=== PATIENT | female | born 1985 | race Caucasian/White ===

== ENCOUNTER 2017-01-17 03:55 | Emergency (ER) | END 2017-01-17 06:55 | disposition home or self-care (01) | DX: K80.20 Calculus of gallbladder without cholecystitis without obstruction (principal); N23 Unspecified renal colic | CPT/HCPCS: 36415; 76775; 80053; 81001; 83690; 85025; 96374; 96375; 96376; J1885; J2270; J2405; J7030; Z7502 ==

== ENCOUNTER 2017-01-17 20:47 | Emergency (ER) | payer MEDICAID ==
[~2017-01-17] VITALS: Ht 160 cm; Wt 85.0 kg
[~2017-01-17 20:47] MED LIST: ALBU8.5H5 INH; AZIT500T3 PO; HYDR-906 PO; IBUP-1542 PO; NAPR-688 PO; ONDA4TAB11 PO
[2017-01-17 20:56] VITALS: Ht 160 cm; Wt 85.0 kg
[2017-01-17] MEDS ORDERED: KETOROLAC 30 MG INJ IM STA (22:04)
[2017-01-17] MEDS ORDERED: SOD CHLORIDE 0.9% 1,000 ML IV ONE (22:30)
[2017-01-17] MEDS ORDERED: KETOROLAC 30 MG INJ IV STA (22:35)
[2017-01-17 22:42] LABS: BASOPHILS % 0.2 % (0.0-2.0); EOSINOPHILS # 0.2 10^3/ul (0.0-0.5); EOSINOPHILS % 2.1 % (0.0-7.0); HEMATOCRIT 37.5 % (37.0-47.0); HEMOGLOBIN 12.1 g/dl (12.0-16.0); LYMPHOCYTES # 3.6 10^3/ul (0.8-2.9); LYMPHOCYTES % 37.9 % (15.0-51.0); MEAN CORPUSCULAR HEMOGLOBIN 29.8 pg (29.0-33.0); MEAN CORPUSCULAR HGB CONC 32.3 g/dl (32.0-37.0); MEAN CORPUSCULAR VOLUME 92.4 fl (82.0-101.0); MEAN PLATELET VOLUME 10.7 fl (7.4-10.4); MONOCYTE # 0.7 10^3/ul (0.3-0.9); MONOCYTES % 7.2 % (0.0-11.0); NEUTROPHILS % 52.3 % (39.0-77.0); PLATELET COUNT 273 10^3/UL (140-415); RED BLOOD COUNT 4.06 10^6/ul (4.20-5.40); RED CELL DISTRIBUTION WIDTH 11.9 % (11.5-14.5); WHITE BLOOD COUNT 9.5 10^3/ul (4.8-10.8)
[2017-01-17 22:57] LABS: ADD UMIC YES; UR ASCORBIC ACID NEGATIVE (NEGATIVE); UR BILIRUBIN (Dip) NEGATIVE (NEGATIVE); UR BLOOD (Dip) 1+ mg/dL (NEGATIVE); UR CLARITY SLIGHTLY CLOUDY (CLEAR); UR COLOR YELLOW (YELLOW); UR GLUCOSE (Dip) NEGATIVE (NEGATIVE); UR KETONES (Dip) NEGATIVE (NEGATIVE); UR LEUKOCYTE ESTERASE (Dip) TRACE Leu/ul (NEGATIVE); UR NITRITE (Dip) NEGATIVE (NEGATIVE); UR RBC 2 /HPF (0-5); UR SPECIFIC GRAVITY (Dip) 1.019 (1.003-1.030); UR SQUAMOUS EPITHELIAL CELL FEW /HPF (FEW); UR TOTAL PROTEIN (Dip) NEGATIVE (NEGATIVE); UR UROBILINOGEN (Dip) NEGATIVE (NEGATIVE)
[2017-01-17 23:08] LABS: ALBUMIN 4.1 g/dl (3.3-4.9); ALBUMIN/GLOBULIN RATIO 1.28; BILIRUBIN,INDIRECT 0.5 mg/dl (0-1.1); BILIRUBIN,TOTAL 0.5 mg/dl (0.2-1.3); CALCIUM 9.3 mg/dl (8.4-10.2); CREATININE 0.67 mg/dl (0.44-1.00); POTASSIUM 4.1 mmol/L (3.5-5.1); TOTAL PROTEIN 7.3 g/dl (6.1-8.1)
--- NOTE | 2017-01-17 23:52 | RADRPT ---
PROCEDURE: CT abdomen and pelvis without intravenous contrast. CLINICAL INDICATION: Pain. TECHNIQUE: CT of the abdomen/pelvis was performed utilizing axial images with reconstructions in s agittal and coronal planes. The administered radiation dose is CTDI 15.9 mGy, DLP 919 mGy-cm. COMPARISON: No pertinent prior examinations were submitted for comparison. FINDINGS: Visualized Chest: The visualized lung bases are clear. Abdomen: The liver, spleen, pancreas, and adrenal glands are unremarkable. A stone is noted within the gall bladder in the region of the gallbladder neck. The gallbladder is mildly distended. There is some likely minimal pericholecystic fluid or wall thickening. The kidneys are without hydronephrosis. There is a punctate nonobstructive calculus within the inter polar left kidney. There is no evidence of bowel obstruction. The appendix is normal. No intra-abdominal free air is seen. There is no evidence of intra-abdominal adenopathy or free fluid. Pelvis: There is no evidence of pelvic adenopathy. The uterus and ovaries are without enlargement. The uri nary bladder is unremarkable. There is no pelvic free fluid. Osseous structures: Unremarkable. IMPRESSION: Cholelithiasis with likely minimal pericholecystic fluid or gallbladder wall thickening. If there i s clinical concern for cholecystitis, right upper quadrant ultrasound may be helpful for further marium luation. Punctate nonobstructive left intrarenal calculus. RPTAT: HIKT .Guero Deluca MD, Date Time Electronically viewed and signed by .Guero Deluca MD, on 01/17/2017 23:51 .T/
[2017-01-18] MEDS ORDERED: morphine 4 MG/ML VIAL IV STA (00:19)
[2017-01-18] MEDS ORDERED: ONDANSETRON 4 MG INJ IV STA (00:19)
[2017-01-18] MEDS ORDERED: HYDR-906 PO (01:02)
[2017-01-18 01:31] VITALS: BP 108/78; PULSE 63; RESP 16; TEMP 97.8
--- NOTE | 2017-01-18 01:32 | ERA ---
ER Documentation Chief Complaint Date/Time DATE: 01/18/17 TIME: 01:25 Chief Complaint righ side flank pain,couldn't get prescription until Wednesday HPI 31-year-old female presenting with right upper quadrant discomfort. Patient was seen yesterday and diagnosed with cholelithiasis. Worse with food. Has not filled prescription for pain. Denies fever, vomiting, diarrhea, constipation, chest pain, shortness of breath. She has no other complaints and describes no other associated manifestations. ROS All systems reviewed and are negative except as per history of present illness. Medications Home Meds Active Scripts Hydrocodone/Acetaminophen (Reagan 5-325 Tablet) 1 Each Tablet, 1 TAB PO Q6H Y for PAIN, #7 TAB Prov:FALLON MCKINNON PA-C 01/18/17 Ondansetron (Zofran Odt) 4 Mg Tab.rapdis, 4 MG PO Q6, #10 Prov:ENEDELIA MENDOZA DO 01/17/17 Naproxen* (Naproxen*) 500 Mg Tablet, 500 MG PO BID Y for PAIN, #20 TAB Prov:ENEDELIA MENDOZA DO 01/17/17 Hydrocodone/Acetaminophen (Reagan 5-325 Tablet) 1 Each Tablet, 1 EACH PO Q6, #20 TAB Prov:ENEDELIA MENDOZA DO 01/17/17 Albuterol Sulfate* (Albuterol Sulfate* HFA) 8.5 Gm Hfa.aer.ad, 1-2 PUFF INH Q4 Y for COUGH, #1 EA Prov:ERICKA RITCHIE MD 06/09/15 Ibuprofen* (Ibuprofen*) 600 Mg Tablet, 600 MG PO Q8 for FEVER, #30 TAB Prov:ERICKA RITCHIE MD 06/09/15 Azithromycin* (Zithromax*) 500 Mg Tablet, 500 MG PO DAILY for 7 Days, TAB Prov:ERICKA RITCHIE MD 06/09/15 Allergies Allergies: Coded Allergies: No Known Allergy (Unverified , 06/09/15) PMhx/Soc History of Surgery: No Anesthesia Reaction: No Hx Neurological Disorder: No Hx Respiratory Disorders: No Hx Cardiac Disorders: No Hx Psychiatric Problems: No Hx Miscellaneous Medical Probl: No Hx Alcohol Use: No Hx Substance Use: No Hx Tobacco Use: No Smoking Status: Never smoker Physical Exam Vitals Vital Signs Date Time Temp Pulse Resp B/P Pulse Ox O2 Delivery O2 Flow Rate FiO2 01/17/17 20:56 99.0 69 18 127/74 99 Physical Exam Const: Overweight 31-year-old female in mild distress Head: Atraumatic Eyes: Normal Conjunctiva ENT: Normal External Ears, Nose and Mouth. Neck: Full range of motion..~ No meningismus. Resp: Clear to auscultation bilaterally Cardio: Regular rate and rhythm, no murmurs Abd: Mild right upper quadrant tenderness. Negative Lawton's sign. No McBurney's point tenderness. Soft, non distended. Normal bowel sounds Skin: No petechiae or rashes Back: No midline or flank tenderness Ext: No cyanosis, or edema Neur: Awake and alert Psych: Normal Mood and Affect Result Diagram: 01/17/17222901/17/172229 Results 24 hrs Laboratory Tests Test 01/17/17 22:25 01/17/17 22:30 Urine Color YELLOW Urine Clarity SLIGHTLY CLOUDY Urine pH 6.0 Urine Specific Delmar 1.019 Urine Ketones NEGATIVEmg/dL Urine Nitrite NEGATIVEmg/dL Urine Bilirubin NEGATIVEmg/dL Urine Urobilinogen NEGATIVEmg/dL Urine Leukocyte Esterase TRACELeu/ul Urine Microscopic RBC 2/HPF Urine Microscopic WBC 3/HPF Urine Squamous Epithelial Cells FEW/HPF Urine Hemoglobin 1+mg/dL Urine Glucose NEGATIVEmg/dL Urine Total Protein NEGATIVEmg/dl White Blood Count 9.510^3/ul Red Blood Count 4.0610^6/ul Hemoglobin 12.1g/dl Hematocrit 37.5% Mean Corpuscular Volume 92.4fl Mean Corpuscular Hemoglobin 29.8pg Mean Corpuscular Hemoglobin Concent 32.3g/dl Red Cell Distribution Width 11.9% Platelet Count 44597^3/UL Mean Platelet Volume 10.7fl Neutrophils % 52.3% Lymphocytes % 37.9% Monocytes % 7.2% Eosinophils % 2.1% Basophils % 0.2% Nucleated Red Blood Cells % 0.0/100WBC Neutrophils # 5.010^3/ul Lymphocytes # 3.610^3/ul Monocytes # 0.710^3/ul Eosinophils # 0.210^3/ul Basophils # 0.010^3/ul Nucleated Red Blood Cells # 0.010^3/ul Sodium Level 139mmol/L Potassium Level 4.1mmol/L Chloride Level 106mmol/L Carbon Dioxide Level 26mmol/L Anion Gap 11 Blood Urea Nitrogen 9mg/dl Creatinine 0.67mg/dl Glucose Level 90mg/dl Calcium Level 9.3mg/dl Total Bilirubin 0.5mg/dl Direct Bilirubin 0.00mg/dl Indirect Bilirubin 0.5mg/dl Aspartate Amino Transf (AST/SGOT) 28IU/L Alanine Aminotransferase (ALT/SGPT) 45IU/L Alkaline Phosphatase 95IU/L Total Protein 7.3g/dl Albumin 4.1g/dl Globulin 3.20g/dl Albumin/Globulin Ratio 1.28 Lipase 128U/L Serum HCG, Qualitative NEGATIVE Current Medications Medications (Trade) Dose Ordered Sig/Ralph Route PRN Reason Start Time Stop Time Status Last Admin Dose Admin Ketorolac Tromethamine 30 mg 30 mg ONCE STAT IM 01/17/17 22:04 01/17/17 22:36 DC Sodium Chloride (NS) 1,000 ml @ 1,000 mls/hr Q1H ONCE IV 01/17/17 22:30 01/17/17 23:29 DC 01/17/17 22:34 Ketorolac Tromethamine (Toradol) 30 mg ONCE STAT IV 01/17/17 22:35 01/17/17 22:36 DC 01/17/17 22:49 Morphine Sulfate (morphine) 4 mg ONCE STAT IV 01/18/17 00:19 01/18/17 00:21 DC 01/18/17 00:23 Ondansetron HCl (Zofran Inj) 4 mg ONCE STAT IV 01/18/17 00:19 01/18/17 00:21 DC 01/18/17 00:23 Procedures/MDM 31-year-old female presenting with signs and symptoms most consistent with cholelithiasis. Ultrasound was taken yesterday, read by the radiologist given the following impression: 2. Cholelithiasis with mildly thickened gallbladder wall. Urinalysis yesterday showed hematuria. Laboratory taken today, were similar to yesterday's findings. CT was ordered, read by the radiologist, given the following impression: Cholelithiasis with likely minimal pericholecystic fluid or gallbladder wall thickening. If there is clinical concern for cholecystitis, right upper quadrant ultrasound may be helpful for further evaluation. Punctate nonobstructive left intrarenal calculus. Patient was given morphine and Toradol in the ED with adequate relief of symptoms. Workup included CBC, CMP, urinalysis, urine , lipase and the aforementioned images. The current most of the diagnosis cholelithiasis. Treatment plan will thus include outpatient pain management with referral to surgeon which is been handed to the patient. Case has been reviewed with my attending who agrees with the assessment and plan. At this time I do not suspect pneumonia, cholangitis, cholecystitis, intestinal ischemia or pyelonephritis. As well as hepatitis, appendicitis, acute pancreatitis, or pneumonia. On repeat exam, the abdomen exam is improved with minimal right upper quadrant tenderness. The patient is well appearing, and tolerates PO. I have spoke with the patient regarding their condition and future management. They have verbally responded that they understand their status and treatment plan. The patients vitals are stable, and their current condition is appropriate for discharge. The patient will be given discharge instructions with return precautions. Departure Diagnosis: Primary Impression: Cholelithiasis Qualified Code: K80.80 - Biliary calculus of other site without obstruction Condition: Stable Patient Instructions: Gallstones Referrals: KAMRAN HAAS MD Additional Instructions: Follow up with your PCP within the next 1-3 days for a more thorough evaluation and a possible referral to a specialist. Return the the emergency department immediately if symptoms worsen or change. If you have any questions regarding medications, ask your pharmacist or us before you leave. If any adverse reactions occur while taking your medications, discontinue the treatment and return to the emergency department immediately. Take your medications as directed, and complete the entire course of treatment. FALLON MCKINNON PA-C Jan 18, 2017 01:31
== END 2017-01-18 01:32 | disposition home or self-care (01) ==
LOC: FTE 20:47
DX: K80.80 Other cholelithiasis without obstruction (principal)
CPT/HCPCS: 36415; 74176; 80053; 81001; 83690; 84703; 85025; 96374; 96375; J1885; J2270; J2405; J7030; Z7502

== ENCOUNTER 2017-03-14 07:29 | Emergency (ER) | payer MEDICAID ==
[~2017-03-14] VITALS: Ht 157.5 cm; Wt 85.0 kg
[2017-03-14 07:31] VITALS: Ht 157.5 cm; Wt 85.0 kg
[2017-03-14] MEDS ORDERED: ONDANSETRON 4 MG INJ IV STA (07:53)
[2017-03-14] MEDS ORDERED: morphine 4 MG/ML VIAL IV STA (07:53)
[2017-03-14] MEDS ORDERED: SOD CHLORIDE 0.9% 1,000 ML IV STA (07:53)
[2017-03-14 08:31] LABS: BASOPHIL # 0.1 10^3/ul (0.0-0.1); BASOPHILS % 0.5 % (0.0-2.0); EOSINOPHILS # 0.2 10^3/ul (0.0-0.5); EOSINOPHILS % 2.2 % (0.0-7.0); HEMATOCRIT 38.9 % (37.0-47.0); HEMOGLOBIN 12.9 g/dl (12.0-16.0); LYMPHOCYTES # 3.1 10^3/ul (0.8-2.9); LYMPHOCYTES % 32.3 % (15.0-51.0); MEAN CORPUSCULAR HEMOGLOBIN 30.2 pg (29.0-33.0); MEAN CORPUSCULAR HGB CONC 33.2 g/dl (32.0-37.0); MEAN CORPUSCULAR VOLUME 91.1 fl (82.0-101.0); MEAN PLATELET VOLUME 11.1 fl (7.4-10.4); MONOCYTE # 0.8 10^3/ul (0.3-0.9); MONOCYTES % 8.7 % (0.0-11.0); NEUTROPHIL # 5.3 10^3/ul (1.6-7.5); PLATELET COUNT 297 10^3/UL (140-415); RED BLOOD COUNT 4.27 10^6/ul (4.20-5.40); RED CELL DISTRIBUTION WIDTH 11.9 % (11.5-14.5); WHITE BLOOD COUNT 9.5 10^3/ul (4.8-10.8)
[2017-03-14 08:39] LABS: ADD UMIC YES; UR ASCORBIC ACID NEGATIVE (NEGATIVE); UR BILIRUBIN (Dip) NEGATIVE (NEGATIVE); UR BLOOD (Dip) 1+ mg/dL (NEGATIVE); UR CLARITY CLEAR (CLEAR); UR COLOR COLORLESS (YELLOW); UR GLUCOSE (Dip) NEGATIVE (NEGATIVE); UR KETONES (Dip) NEGATIVE (NEGATIVE); UR LEUKOCYTE ESTERASE (Dip) NEGATIVE Leu/ul (NEGATIVE); UR NITRITE (Dip) NEGATIVE (NEGATIVE); UR RBC 0 /HPF (0-5); UR SPECIFIC GRAVITY (Dip) 1.004 (1.003-1.030); UR TOTAL PROTEIN (Dip) NEGATIVE (NEGATIVE); UR UROBILINOGEN (Dip) NEGATIVE (NEGATIVE)
[2017-03-14 08:52] LABS: ALBUMIN 4.1 g/dl (3.3-4.9); ALBUMIN/GLOBULIN RATIO 1.13; BILIRUBIN,INDIRECT 0.8 mg/dl (0-1.1); BILIRUBIN,TOTAL 0.8 mg/dl (0.2-1.3); CALCIUM 9.1 mg/dl (8.4-10.2); CREATININE 0.62 mg/dl (0.44-1.00); TOTAL PROTEIN 7.7 g/dl (6.1-8.1)
[2017-03-14] MEDS ORDERED: HYDROmorphONE 1 MG/ML SYG IV STA (08:57)
--- NOTE | 2017-03-14 08:59 | RADRPT ---
PROCEDURE: US Abdomen. CLINICAL INDICATION: abdominal pain TECHNIQUE: Multiple real-time images were acquired of the patient's right upper quadrant abdomen a nd retroperitoneum utilizing a high resolution transducer. COMPARISON: CT 01/17/2017; US ABDOMEN 01/17/2017 FINDINGS: The liver demonstrates normal echogenicity. The liver is normal in size and no focal solid lesions are seen. The liver measures 15.5 cm in length. The portal vein is patent with normal direction of f low. No intrahepatic biliary dilatation is seen. Multiple calcified gallstones are identified within the gallbladder. There is no pericholecystic fl uid or gallbladder wall thickening. The common bile duct measures 3 mm in maximal dimension. The visualized portions of the pancreas are unremarkable. The tail of the pancreas is not seen. No free fluid is identified. The right kidney is normal in size, and demonstrate normal echogenicity and cortical thickness. The right kidney measures 10.0 cm in long dimension. There is no evidence of hydronephrosis. There are no kidney stones. RPTAT: AA IMPRESSION: Cholelithiasis. .Antolin Colón MD, Date Time Electronically viewed and signed by .Antolin Colón MD, on 03/14/2017 08:58 .S/
[2017-03-14] MEDS ORDERED: DICYCLOMINE 10 MG CAP PO ONE (09:00)
[2017-03-14] MEDS ORDERED: DIPHENHYDRAMINE 50 MG INJ IV ONE (09:30)
[2017-03-14] MEDS ORDERED: HYDR-906 PO (09:37)
[2017-03-14] MEDS ORDERED: ONDA4TAB14 PO (09:38)
[2017-03-14 10:21] VITALS: BP 128/78; PULSE 65; RESP 17
--- NOTE | 2017-03-14 10:28 | ERD ---
ER Documentation Chief Complaint Date/Time DATE: 03/14/17 TIME: :17 Chief Complaint Complains of epigastric and abdominal pain Hx of Gall stones HPI 31-year-old female patient with a past medical history of gallstones and nephrolithiasis presents to the ED complaining of epigastric pain that radiates to her right upper quadrant. Reports that she tried taking zzea-[id number]-fmfadxo pain medication (Tylenol and Ibuprofen) at home which did not relieve her pain. Reports that eating food makes the pain worse. States that she had 1 episode of nonbilious nonbloody vomiting. Denies any fever, chills, diarrhea, constipation, cough, fever, wheezing, shortness of breath, chest pain. Denies any dysuria, urgency, frequency, hematuria. ROS All systems reviewed and are negative except as per history of present illness. Medications Home Meds Active Scripts Ondansetron (Ondansetron Odt) 4 Mg Tab.rapdis, 4 MG PO Q6H Y for NAUSEA AND/OR VOMITING, #10 TAB Prov:JENNI RIVERA PA-C 03/14/17 Hydrocodone/Acetaminophen (Pelkie 5-325 Tablet) 1 Each Tablet, 1 TAB PO Q6H Y for PAIN, #7 TAB Prov:JENNI RIVERA PA-C 03/14/17 Hydrocodone/Acetaminophen (Pelkie 5-325 Tablet) 1 Each Tablet, 1 TAB PO Q6H Y for PAIN, #7 TAB Prov:FALLON MCKINNON PA-C 01/18/17 Ondansetron (Zofran Odt) 4 Mg Tab.rapdis, 4 MG PO Q6, #10 Prov:ENEDELIA MENDOZA DO 01/17/17 Naproxen* (Naproxen*) 500 Mg Tablet, 500 MG PO BID Y for PAIN, #20 TAB Prov:ENEDELIA MENDOZA DO 01/17/17 Hydrocodone/Acetaminophen (Pelkie 5-325 Tablet) 1 Each Tablet, 1 EACH PO Q6, #20 TAB Prov:ENEDELIA MENDOZA DO 01/17/17 Albuterol Sulfate* (Albuterol Sulfate* HFA) 8.5 Gm Hfa.aer.ad, 1-2 PUFF INH Q4 Y for COUGH, #1 EA Prov:ERICKA RITCHIE MD 06/09/15 Ibuprofen* (Ibuprofen*) 600 Mg Tablet, 600 MG PO Q8 for FEVER, #30 TAB Prov:ERICKA RITCHIE MD 06/09/15 Azithromycin* (Zithromax*) 500 Mg Tablet, 500 MG PO DAILY for 7 Days, TAB Prov:ERICKA RITCHIE MD 06/09/15 Allergies Allergies: Coded Allergies: No Known Allergy (Unverified , 06/09/15) PMhx/Soc History of Surgery: No Anesthesia Reaction: No Hx Neurological Disorder: No Hx Respiratory Disorders: No Hx Cardiac Disorders: No Hx Psychiatric Problems: No Hx Miscellaneous Medical Probl: Yes (gallstones) Hx Alcohol Use: No Hx Substance Use: No Hx Tobacco Use: No Physical Exam Vitals Vital Signs Date Time Temp Pulse Resp B/P Pulse Ox O2 Delivery O2 Flow Rate FiO2 03/14/17 07:31 98.6 62 20 132/96 100 Physical Exam Const: Fkx-foj-zbiblfyyd, well-nourished. In no acute distress. Head: Atraumatic, normocephalic Eyes: Normal Conjunctiva without injection. No purulent discharge. ENT: Normal external ear, nose. Moist oropharynx without tonsillar exudates. Non -erythematous pharynx. Uvula midline. No drooling. No trismus. Neck: No cervical midline tenderness. Full range of motion. No meningismus. No cervical lymphadenopathy. No JVD. Resp: Clear to auscultation bilaterally. No wheezing, rhonchi, rales, or crackles. No accessory muscle use. No retractions. Cardio: Regular rate and rhythm. No murmurs, rubs or gallops. Abd: Soft, epigastric tenderness and right upper quadrant tenderness, non distended. Normal bowel sounds. No palpable masses. No rebound tenderness. No guarding. Negative McBurney's point. Negative psoas sign. Negative obturator sign. Skin: No petechiae or rashes Back: No midline tenderness. No CVA tenderness. Ext: No cyanosis, or edema. Neur: Awake and alert. Normal gait. Normal coordination. Psych: Normal Mood and Affect Result Diagram: 03/14/17 0817 03/14/17 0817 Results 24 hrs Laboratory Tests Test 03/14/17 08:17 White Blood Count 9.510^3/ul Red Blood Count 4.2710^6/ul Hemoglobin 12.9g/dl Hematocrit 38.9% Mean Corpuscular Volume 91.1fl Mean Corpuscular Hemoglobin 30.2pg Mean Corpuscular Hemoglobin Concent 33.2g/dl Red Cell Distribution Width 11.9% Platelet Count 23690^3/UL Mean Platelet Volume 11.1fl Neutrophils % 56.0% Lymphocytes % 32.3% Monocytes % 8.7% Eosinophils % 2.2% Basophils % 0.5% Nucleated Red Blood Cells % 0.0/100WBC Neutrophils # 5.310^3/ul Lymphocytes # 3.110^3/ul Monocytes # 0.810^3/ul Eosinophils # 0.210^3/ul Basophils # 0.110^3/ul Nucleated Red Blood Cells # 0.010^3/ul Urine Color COLORLESS Urine Clarity CLEAR Urine pH 6.0 Urine Specific [place]ow 1.004 Urine Ketones NEGATIVEmg/dL Urine Nitrite NEGATIVEmg/dL Urine Bilirubin NEGATIVEmg/dL Urine Urobilinogen NEGATIVEmg/dL Urine Leukocyte Esterase NEGATIVELeu/ul Urine Microscopic RBC 0/HPF Urine Microscopic WBC 0/HPF Urine Hemoglobin 1+mg/dL Urine Glucose NEGATIVEmg/dL Urine Total Protein NEGATIVEmg/dl Sodium Level 140mmol/L Potassium Level 4.0mmol/L Chloride Level 109mmol/L Carbon Dioxide Level 22mmol/L Anion Gap 13 Blood Urea Nitrogen 7mg/dl Creatinine 0.62mg/dl Glucose Level 101mg/dl Calcium Level 9.1mg/dl Total Bilirubin 0.8mg/dl Direct Bilirubin 0.00mg/dl Indirect Bilirubin 0.8mg/dl Aspartate Amino Transf (AST/SGOT) 39IU/L Alanine Aminotransferase (ALT/SGPT) 47IU/L Alkaline Phosphatase 126IU/L Total Protein 7.7g/dl Albumin 4.1g/dl Globulin 3.60g/dl Albumin/Globulin Ratio 1.13 Lipase 131U/L Current Medications Medications (Trade) Dose Ordered Sig/Ralph Route PRN Reason Start Time Stop Time Status Last Admin Dose Admin Sodium Chloride (NS) 1,000 ml @ 1,000 mls/hr Q1H STAT IV 03/14/17 07:53 03/14/17 08:52 DC 03/14/17 08:22 Morphine Sulfate (morphine) 4 mg ONCE STAT IV 03/14/17 07:53 03/14/17 07:54 DC 03/14/17 08:22 Ondansetron HCl (Zofran Inj) 4 mg ONCE STAT IV 03/14/17 07:53 03/14/17 07:54 DC 03/14/17 08:22 Dicyclomine HCl (Bentyl) 10 mg ONCE ONCE PO 03/14/17 09:00 03/14/17 09:01 DC 03/14/17 08:53 Hydromorphone HCl (Dilaudid) 1 mg ONCE STAT IV 03/14/17 08:57 03/14/17 08:58 DC 03/14/17 09:09 Diphenhydramine HCl (Benadryl) 25 mg ONCE ONCE IV 03/14/17 09:30 03/14/17 09:31 DC 03/14/17 09:29 Procedures/[facility] 31-year-old female patient with a past medical history of nephrolithiasis and gallstones presents to the ED complaining of epigastric and right upper quadrant abdominal pain that started yesterday. Patient is afebrile and nontoxic-appearing. Patient was further worked up with CBC, CMP, lipase, UA, gallbladder ultrasound. Patient's pain and symptoms have improved after treatment with 4 mg IV Morphine, 1 L Normal saline, 1 mg Dilaudid, 4 mg IV Zofran. Reports that she felt itchy after receiving Dilaudid therefore Benadryl 25 mg IV was ordered to treat patient with improvement. CBC: No leukocytosis. No e/o of systemic infection. No e/o anemia. CMP: No e/o severe acidosis, alkalosis, renal failure, diabetic ketoacidosis, liver disease Lipase within normal limits. Urine: No leukocyte esterase, no nitrites, 1+ hematuria. Urine : Negative PROCEDURE: US Abdomen. CLINICAL INDICATION: abdominal pain TECHNIQUE: Multiple real-time images were acquired of the patient's right upper quadrant abdomen and retroperitoneum utilizing a high resolution transducer. COMPARISON: CT 01/17/2017; US ABDOMEN 01/17/2017 FINDINGS: The liver demonstrates normal echogenicity. The liver is normal in size and no focal solid lesions are seen. The liver measures 15.5 cm in length. The portal vein is patent with normal direction of flow. No intrahepatic biliary dilatation is seen. Multiple calcified gallstones are identified within the gallbladder. There is no pericholecystic fluid or gallbladder wall thickening. The common bile duct measures 3 mm in maximal dimension. The visualized portions of the pancreas are unremarkable. The tail of the pancreas is not seen. No free fluid is identified. The right kidney is normal in size, and demonstrate normal echogenicity and cortical thickness. The right kidney measures 10.0 cm in long dimension. There is no evidence of hydronephrosis. There are no kidney stones. RPTAT: AA IMPRESSION: Cholelithiasis. Patient likely has biliary colic secondary to cholelithiasis. Differentials also include nephrolithiasis since she has a history however suspicion for septic renal stone is low. 1+ hematuria. No leukocytosis. No leukocyte esterase or nitrite. No indication for admission at this time. Patient strictly instructed to follow-up with a general surgeon. Low suspicion for urinary tract infection, ectopic , ovarian torsion, gastritis, GERD, peptic ulcer disease, cholecystitis, choledocholithiasis, cholangitis, pancreatitis, appendicitis, bowel obstruction, ileus, volvulus, nephrolithiasis , pyelonephritis, hepatitis, perforated viscus, diverticulitis, strangulated/ incarcerated hernia, DKA, acute abdomen, mesenteric ischemia or other emergent conditions. Discharge medications: Radha Thomas Follow up with primary care physician in 1-2 days for referral to general surgeon. Instructed patient to return to the ED sooner for any worsening symptoms. Patient's questions were answered. Patient understood and agreed with discharge plan. Patient discharged stable. Disclaimer: Inadvertent spelling and grammatical errors are likely due to EHR/ dictation software use and do not reflect on the overall quality of patient care. Also, please note that the electronic time recorded on this note does not necessarily reflect the actual time of the patient encounter. Departure Diagnosis: Primary Impression: Abdominal pain Abdominal location: right upper quadrant Qualified Code: R10.11 - Right upper quadrant abdominal pain Condition: Stable Patient Instructions: Biliary Colic With Gallstone (Confirmed) Referrals: [facility] YOU HAVE RECEIVED A MEDICAL SCREENING EXAM AND THE RESULTS INDICATE THAT YOU DO NOT HAVE A CONDITION THAT REQUIRES URGENT TREATMENT IN THE EMERGENCY DEPARTMENT. FURTHER EVALUATION AND TREATMENT OF YOUR CONDITION CAN WAIT UNTIL YOU ARE SEEN IN YOUR DOCTORS OFFICE WITHIN THE NEXT 1-2 DAYS. IT IS YOUR RESPONSIBILITY TO MAKE AN APPOINTMENT FOR FOLOW-UP CARE. IF YOU HAVE A PRIMARY DOCTOR --you should call your primary doctor and schedule an appointment IF YOU DO NOT HAVE A PRIMARY DOCTOR YOU CAN CALL OUR PHYSICIAN REFERRAL HOTLINE AT IF YOU CAN NOT AFFORD TO SEE A PHYSICIAN YOU CAN CHOSE FROM THE FOLLOWING [facility] [address] [facility] [address] [facility] [address] [facility] [address] [facility] [address] [facility]. [facility] [address] [facility]. [facility] YOU HAVE RECEIVED A MEDICAL SCREENING EXAM AND THE RESULTS INDICATE THAT YOU DO NOT HAVE A CONDITION THAT REQUIRES URGENT TREATMENT IN THE EMERGENCY DEPARTMENT. FURTHER EVALUATION AND TREATMENT OF YOUR CONDITION CAN WAIT UNTIL YOU ARE SEEN IN YOUR DOCTORS OFFICE WITHIN THE NEXT 1-2 DAYS. IT IS YOUR RESPONSIBILITY TO MAKE AN APPOINTMENT FOR FOLOW-UP CARE. IF YOU HAVE A PRIMARY DOCTOR --you should call your primary doctor and schedule and appointment IF YOU DO NOT HAVE A PRIMARY DOCTOR YOU CAN CALL OUR PHYSICIAN REFERRAL HOTLINE AT . IF YOU CAN NOT AFFORD TO SEE A PHYSICIAN YOU CAN CHOSE FROM THE FOLLOWING [facility]: [facility] [address] [place] [address] [address] [place] [address] [facility] + [facility] [address] [place] [address] [facility] URGENT CARE/SPECIALTIES Additional Instructions: FOLLOW UP WITH YOUR PRIMARY CARE PHYSICIAN TOMORROW for a referral to a general surgeon.Return to this facility if you are not improving as expected - fever, worsening abdominal pain, persistent vomiting, etc. JENNI RIVERA PA-C Mar 14, 2017 10:28
== END 2017-03-14 10:22 | disposition home or self-care (01) ==
LOC: FTE 07:29
DX: R10.11 Right upper quadrant pain (principal); R11.10 Vomiting, unspecified
CPT/HCPCS: 36415; 76705; 80053; 81001; 83690; 85025; 96374; 96375; J1170; J1200; J2270; J2405; J7030; Z7502; Z7610

== ENCOUNTER 2017-07-23 08:24 | Day surgery (SDC) | END 2017-07-23 16:00 | disposition home or self-care (01) ==

== ENCOUNTER 2017-07-24 12:57 | Emergency (ER) | END 2017-07-24 18:39 | disposition home or self-care (01) ==

== ENCOUNTER 2018-04-15 19:09 | Emergency (ER) | END 2018-04-16 00:23 | disposition home or self-care (01) ==

== ENCOUNTER 2018-04-27 12:16 | Emergency (ER) | END 2018-04-27 14:28 | disposition home or self-care (01) ==

== ENCOUNTER 2018-05-25 19:26 | Emergency (ER) | payer OTHER ==
[~2018-05-25] VITALS: Ht 160 cm; Wt 83.2 kg
[~2018-05-25 19:26] MED LIST changes: +ACET325T33 PO; -ALBU8.5H5 INH; +ALBU8.5H8 INH; -AZIT500T3 PO; +CETI10CA PO; +CLOT30CR24 TOP; +CYCL10TA7 PO; +DOCU-144 PO; +FLUT9.9S NASAL; +GUAI-637 PO; +GUAI5SYR2 PO; +HYDR-4011 PO; -HYDR-906 PO; -IBUP-1542 PO; -NAPR-688 PO; +NAPR-985 PO; +OMEP20CA16 PO; -ONDA4TAB11 PO; +ONDA4TAB14 PO; +RANI150T35 PO
[2018-05-25 19:54] VITALS: Ht 160 cm; Wt 83.2 kg
[2018-05-25] MEDS ORDERED: ONDANSETRON (ODT) 4 MG TAB ODT STA (21:48)
[2018-05-25] MEDS ORDERED: ONDA4TAB14 PO (23:01)
[2018-05-25 23:10] VITALS: BP 109/66; PULSE 70; RESP 16
--- NOTE | 2018-05-26 02:16 | ERD ---
ER Documentation Chief Complaint Chief Complaint bib ra [id number] c/o nausea and vomiting x 4 hours HPI 33-year-old female brought in by RA complaining of nausea vomiting times several hours. Patient states that she had multiple episodes of vomiting, unable to maintain any p.o. intake. The vomitus is nonbilious and nonbloody. Denies fever or chills. Denies abdominal pain. Denies diarrhea. Denies sick contacts. Patient denies possibility of food poisoning. ROS All systems reviewed and are negative except as per history of present illness. Medications Home Meds Active Scripts Ondansetron (Ondansetron Odt) 4 Mg Tab.rapdis, 4 MG PO Q6H PRN for NAUSEA AND/OR VOMITING, #10 TAB Prov:MIGUEL JEFFERY SECURITY RISK ANALYST 05/25/18 Clotrimazole* (Clotrimazole* AF) 1% - 30 Gm Cream.gm., 1 APPLIC TOP BID for 7 Days, TUB Prov:EUGENIO CESAR PA-C 05/21/18 Albuterol Sulfate* (Proair HFA*) 8.5 Gm Hfa.aer.ad, 2 PUFF INH Q4, #1 INHALER Prov:EUGENIO CESAR PA-C 05/21/18 Guaifenesin* (Robitussin*) 100 Mg/5 Ml Syrup, 100 MG PO Q4H PRN for COUGH, #100 ML Prov:EUGENIO CESAR PA-C 05/21/18 Fluticasone Propionate (Flonase Allergy Relief) 9.9 Ml Leslie.susp, 2 SPRAY NASAL DAILY, #1 BOTTLE TO EACH NOSTRIL Prov:GAUTAM KIM PA-C 04/27/18 Cetirizine Hcl* (Zyrtec*) 10 Mg Capsule, 10 MG PO DAILY, #12 TAB.CHEW Prov:GAUTAM KIM PA-C 04/27/18 Guaifenesin-Dextromethorphan* (Robitussin* DM) 100MG/10MG/5ML Syrup, 10 ML PO Q6H PRN for COUGH for 5 Days, ML Prov:GAUTAM KIM PA-C 04/27/18 Cyclobenzaprine Hcl* (Cyclobenzaprine Hcl*) 10 Mg Tablet, 10 MG PO QHS, #7 TAB Prov:GAUTAM KIM PA-C 04/27/18 Naproxen* (Naprosyn*) 500 Mg Tablet, 500 MG PO BID PRN for PAIN AND/OR INFLAMMATION, #30 TAB Prov:GAUTAM KIM PA-C 04/27/18 Ondansetron (Ondansetron Odt) 4 Mg Tab.rapdis, 4 MG PO Q6H PRN for NAUSEA AND/OR VOMITING, #10 TAB Prov:HAYDEE ALFONSO PA-C 04/15/18 Acetaminophen* (Tylenol*) 325 Mg Tablet, 2 TAB PO Q6 PRN for PAIN AND OR E LEVATED TEMP, #20 TAB Prov:HAYDEE ALFONSO PA-C 04/15/18 Omeprazole* (Omeprazole*) 20 Mg Capsule.dr, 20 MG PO DAILY, #10 Prov:HAYDEE ALFONSO PA-C 04/15/18 Ranitidine Hcl* (Zantac*) 150 Mg Tablet, 150 MG PO BID PRN for EPIGASTRIC PAIN, #30 TAB Prov:HAYDEE ALFONSO PA-C 04/15/18 Docusate Sodium* (Colace*) 100 Mg Capsule, 100 MG PO BID, #30 CAP Prov:CONNIE MORALES MD 07/24/17 Hydrocodone/Acetaminophen (Urich 5-325 Tablet) 1 Each Tablet, 1 TAB PO Q6H PRN for PAIN, #14 TAB Prov:CONNIE MORALES MD 07/24/17 Allergies Allergies: Coded Allergies: No Known Allergy (Unverified , 06/09/15) PMhx/Soc History of Surgery: Yes (cholecystectomy) Anesthesia Reaction: No Hx Neurological Disorder: No Hx Respiratory Disorders: No Hx Cardiac Disorders: No Hx Psychiatric Problems: Yes (DEPRESSION, INSOMNIA) Hx Miscellaneous Medical Probl: Yes (THYROID PROBLEM) Hx Alcohol Use: No Hx Substance Use: No Hx Tobacco Use: No Smoking Status: Never smoker Physical Exam Vitals Vital Signs Date Temp Pulse Resp B/P (MAP) Pulse Ox O2 O2 Flow FiO2 Time Delivery Rate 05/25/18 97.9 70 16 109/66 99 Room Air 23:10 (80) 05/25/18 97.9 118 20 102/58 97 19:54 (73) Physical Exam General: Well-developed, well-nourished, conscious and coherent, in no distress Skin: Warm and dry without rash, good texture and turgor Head: Normocephalic without evidence of trauma Chest: Normal AP diameter. Good expansion without retractions. Nontender. Lungs are clear to auscultate bilaterally with good tidal volume Heart: Regular rate and rhythm. No murmur, rub, or gallops heard Abdomen: Soft and nontender without masses, guarding, or rebound. Bowel sounds are active. No hepatosplenomegaly Extremities: Full range of motion. Good strength bilaterally. No erythema, ecchymosis, or edema. Peripheral pulses are intact. Sensation intact Neuro: Alert and oriented 4, GCS 15. Results 24 hrs Laboratory Tests Test 05/25/18 22:06 05/25/18 22:08 Bedside Urine pH (LAB) 6.0 Bedside Urine Protein (LAB) 2+ Bedside Urine Glucose (UA) Negative Bedside Urine Ketones (LAB) 1+ Bedside Urine Blood Negative Bedside Urine Nitrite (LAB) Negative Bedside Urine Leukocyte Esterase (L Negative POC Beta HCG, Qualitative NEGATIVE Current Medications Medications Dose Sig/Ralph Start Time Status Last (Trade) Ordered Route PRN Stop Time Admin Dose Reason Admin Ondansetron 4 mg ONCE STAT 05/25/18 DC 05/25/18 HCl (Zofran ODT 21:48 22:06 Odt) 05/25/18 21:49 Procedures/MDM 33-year-old female presents the ED with nausea vomiting times 1 day. Zofran given to the patient in the ED. After Zofran, patient able to tolerate p.o. fluid intake. UA is negative for UTI. Urine is negative. Patient is afebrile, does not have any abdominal tenderness on palpation. I doubt acute appendicitis, cholecystitis or other acute abdomen. Patient's symptoms is consistent with that of viral illness. Patient does not have any active vomiting in the ED, is able to maintain by mouth fluid intake. Patient appears well, stable for discharge and outpatient management. Medical decision making shared with patient and family. Education provided to patient and family. Patient and family expressed understanding of the plan. Medications on discharge: Zofran. Follow-up: Primary care provider in 2-3 days or return to ED if worse. Disclaimer: Inadvertent spelling and grammatical errors are likely due to EHR/dictation software use and do not reflect on the overall quality of patient care. Also, please note that the electronic time recorded on this note does not necessarily reflect the actual time of the patient encounter. Departure Diagnosis: Primary Impression: Vomiting Condition: Stable Patient Instructions: Vomiting (6Y-Adult) Referrals: [facility] (PCP) Additional Instructions: Call your primary care doctor TOMORROW for an appointment during the next 2-3 days.See the doctor sooner or return here if your condition worsens before your appointment time. MIGUEL JEFFERY NP May 26, 2018 02:16
== END 2018-05-25 23:13 | disposition home or self-care (01) ==
LOC: FTE 19:26
DX: R11.2 Nausea with vomiting, unspecified (principal); R40.2412 Glasgow coma scale score 13-15, at arrival to emergency department
CPT/HCPCS: 81003; 81025; Z7502; Z7610; 99283